=== PATIENT | female | born 1930 | race Native Hawaiian/Other Pacific Islander ===

== ENCOUNTER 2021-03-28 12:55 | Outpatient (CLI) | payer OTHER | END 2021-03-28 20:18 | disposition home or self-care (01) | LOC: RAD 12:55 | PROVIDERS: ATTEND Internal Medicine | DX: Z13.820 Encounter for screening for osteoporosis (principal); N95.8 Other specified menopausal and perimenopausal disorders ==

== ENCOUNTER 2021-04-26 23:13 | Emergency (ER) | payer OTHER ==
[~2021-04-26] VITALS: Ht 165.1 cm; Wt 44.9 kg
[2021-04-27 00:55] VITALS: BP 131/61; TEMP 98.1
== END 2021-04-27 01:00 | disposition home or self-care (01) ==
LOC: ED 23:13
DX: S61.452A Open bite of left hand, initial encounter (principal); S61.552A Open bite of left wrist, initial encounter; W54.0XXA Bitten by dog, initial encounter; Y92.89 Other specified places as the place of occurrence of the external cause
CPT/HCPCS: 90471; 90715; 96372; 99283; J0696; J2405

== ENCOUNTER 2021-05-01 16:13 | Outpatient (CLI) | payer OTHER | END 2021-05-01 19:27 | disposition home or self-care (01) | LOC: LAB 16:13 | PROVIDERS: ATTEND Internal Medicine | DX: R52 Pain, unspecified (principal); W54.0XXD Bitten by dog, subsequent encounter | CPT/HCPCS: 87070; 87205 ==

== ENCOUNTER 2021-08-05 12:03 | Outpatient (CLI) | payer OTHER | END 2021-08-05 18:58 | disposition home or self-care (01) | LOC: LAB 12:03 | PROVIDERS: ATTEND Internal Medicine | DX: R79.89 Other specified abnormal findings of blood chemistry (principal); Z79.899 Other long term (current) drug therapy | CPT/HCPCS: 84439; 84443 ==